=== PATIENT | female | born 1990 | race Caucasian/White ===

== ENCOUNTER 2020-11-02 20:56 | Inpatient (IN) ==
[2020-11-02] MEDS ORDERED: ONDANSETRON 4 MG/2 ML VIAL IV PRN (21:50)
[2020-11-02] MEDS ORDERED: BUTORPHANOL 2 MG/ML VIAL IV PRN (21:50)
[2020-11-02] MEDS: LACTATED RINGERS 1,000 ML IV SCH (22:00)
[2020-11-02 22:13] LABS: Basophils # 0.1 10*3/uL (0.0-0.2); Basophils % 0.4 % (0.0-0.8); Eosinophils # 0.1 10*3/uL (0.0-0.87); Eosinophils % 0.8 % (0.00-10.9); Hematocrit 31.1 VOL% (35.7-47.0); Hemoglobin 10.1 GM/DL (12.0-16.0); Lymphocytes # 2.2 10*3/uL (1.4-4.0); Mean Corpuscular HGB Conc 32.5 GM/DL (32-36); Mean Corpuscular Volume 85.2 FL (87-102); Mean Platelet Volume 11.7 FL (9.6-12.0); Monocytes % 5.8 % (1.7-12.7); NRBC # 0.02 10*3/uL; Platelet Count 272 T/CUMM (130-400); Red Blood Count 3.65 MC/CUMM (3.8-5.5); Red Cell Distribution Width 13.5 % (9.3-17.3); White Blood Count 14.9 T/CUMM (4-12)
[2020-11-02] MEDS ORDERED: AMPICILLIN INJ 2,000 MG in SODIUM CHLORIDE 0.9% 100 ML IV ONE (22:30)
[2020-11-02] MEDS: MEPERIDINE 50 MG/1 ML VIAL IV PRN (22:55)
[2020-11-02 22:56] LABS: Alanine Aminotransferase < 6 U/L (13-56); Albumin 2.1 G/DL (3.4-5.0); Alkaline Phosphatase 124 U/L (45-117); Aspartate Amino Transferase 10 U/L (0-37); Blood Urea Nitrogen 4 MG/DL (7-18); Calcium 8.2 MG/DL (8.5-10.1); Estimated Glom Filtration Rate 147 ML/MIN; Glucose 80 MG/DL (74-106); Osmolality,Calculated 272.5 MOS/KG (273-304)
[2020-11-03 00:02] LABS: Bacteria,Urine Occasional /HPF (Few); Bilirubin,Urine Negative (Negative); Blood, Urine Negative (Negative); Glucose,Urine (UA) Negative (Negative); Ketones,Urine Negative (Negative); Nitrite,Urine Negative (Negative); Protein,Urine Negative; RBC,Urine 2 /HPF (0-4); Squamous Epithelial Cell,Urine Occasional /HPF (0-10); Urine Appearance CLEAR (Clear); Urine Color Yellow (Yellow); Urine Specific Gravity 1.004 (1.001-1.035); Urine Urobilinogen < 2.0 EU/DL (0.2-1.0); WBC,Urine 2 /HPF (0-6)
[2020-11-03 01:32] LABS: Barbiturates Screen,Urine Negative (Negative); Benzodiazepines Screen,Urine Negative (Negative); Cannabinoid Screen,Urine Positive (Negative); Opiate Screen,Urine Negative (Negative); Phencyclidine Screen,Urine Negative (Negative)
[2020-11-03] MEDS: LACTATED RINGERS 1,000 ML IV SCH ×2 (02:05→09:03)
[2020-11-03] MEDS: MEPERIDINE 50 MG/1 ML VIAL IV PRN (02:10)
[2020-11-03] MEDS: AMPICILLIN INJ 1,000 MG in SODIUM CHLORIDE 0.9% 100 ML IV SCH ×3 (02:35→10:12)
[2020-11-03] MEDS ORDERED: CITRIC ACID/SODIUM CITRATE 30 ML UDCUP PO ONE (03:04)
[2020-11-03] MEDS ORDERED: FAMOTIDINE 20 MG/2 ML VIAL IV ONE (03:04)
[2020-11-03] MEDS ORDERED: NALOXONE 0.4 MG/ML VIAL IV PRN (03:04)
[2020-11-03] MEDS ORDERED: hydrOXYzine HCL 25 MG/1 ML VIAL IM PRN (03:04)
[2020-11-03] MEDS ORDERED: ONDANSETRON 4 MG/2 ML VIAL IV ONE (03:04)
[2020-11-03] MEDS ORDERED: ePHEDrine 50 MG/ML VIAL IV PRN (03:04)
[2020-11-03] MEDS ORDERED: PROMETHAZINE 25 MG/1 ML VIAL IM ONE (03:04)
[2020-11-03] MEDS ORDERED: diphenhydrAMINE 50 MG/1 ML VIAL IV PRN ×2 (03:04)
[2020-11-03] MEDS ORDERED: OXYTOCIN/LR 20 UNIT/1,000 ML BAG IV SCH (04:00)
[2020-11-03] MEDS: fentaNYL 2 MCG/ROPIV 0.2% EPID 100 ML EPIDURAL SCH ×2 (04:11→08:44)
[2020-11-03 06:41] LABS: Bacteria,Urine Occasional /HPF (Few); Bilirubin,Urine Negative (Negative); Blood, Urine Negative (Negative); Glucose,Urine (UA) Negative (Negative); Ketones,Urine Negative (Negative); Nitrite,Urine Negative (Negative); Protein,Urine Negative; RBC,Urine <1 /HPF (0-4); Squamous Epithelial Cell,Urine Occasional /HPF (0-10); Urine Appearance CLEAR (Clear); Urine Color Yellow (Yellow); Urine Urobilinogen < 2.0 EU/DL (0.2-1.0); WBC,Urine 1 /HPF (0-6)
[2020-11-03] MEDS ORDERED: OXYTOCIN/LR 20 UNIT/1,000 ML BAG IV ONE ×2 (10:49→12:45)
[2020-11-03] MEDS ORDERED: TRANEXAMIC ACID 1,000 MG/10 ML VIAL ONE (10:49)
[2020-11-03] MEDS ORDERED: miSOPROStoL 200 MCG TABLET ONE (10:49)
[2020-11-03] MEDS ORDERED: CARBOPROST TROMETHAMINE 250 MCG/ML AMP IM ONE (10:50)
[2020-11-03] MEDS ORDERED: METHYLERGONOVINE 0.2 MG/1 ML AMP ONE (10:50)
[2020-11-03] MEDS ORDERED: LIDOCAINE MPF 2% /EPI 20 ML VIAL ONE (12:09)
[2020-11-03] MEDS ORDERED: fentaNYL 100 MCG/2 ML VIAL ONE ×2 (12:28→12:43)
[2020-11-03] MEDS ORDERED: MIDAZOLAM 2 MG/2 ML VIAL ONE (12:30)
[2020-11-03] MEDS ORDERED: DEXAMETHASONE 4 MG/1 ML VIAL ONE (12:31)
[2020-11-03] MEDS ORDERED: PHENYLEPHRINE 1 MG/10 ML SYRINGE IV ONE (12:31)
[2020-11-03] MEDS ORDERED: ROCURONIUM 50 MG/5 ML VIAL IV ONE (12:31)
[2020-11-03] MEDS ORDERED: ONDANSETRON 4 MG/2 ML VIAL ONE (12:31)
[2020-11-03] MEDS ORDERED: LIDOCAINE 2% 5 ML VIAL ONE (12:31)
[2020-11-03] MEDS ORDERED: SUCCINYLCHOLINE 200 MG/10 ML VIAL ONE (12:31)
[2020-11-03] MEDS ORDERED: propofoL 200 MG/20 ML VIAL IV ONE (12:31)
[2020-11-03 12:44] LABS: Cord Arterial Blood HCO3 20.4 MMOL/L
[2020-11-03] MEDS ORDERED: ACETAMINOPHEN 325 MG TABLET PO PRN (12:45)
[2020-11-03] MEDS ORDERED: ONDANSETRON 4 MG/2 ML VIAL IV PRN (12:45)
[2020-11-03] MEDS ORDERED: RHO(D) IMMUNE GLOBULIN 300 MCG SYRINGE IM ONE (12:45)
[2020-11-03 12:47] LABS: Cord Venous Blood HCO3 20.3 MMOL/L; Cord Venous Blood PCO2 39.3 MMHG; Cord Venous Blood PO2 30.1 MMHG
[2020-11-03] MEDS ORDERED: LACTATED RINGERS 1,000 ML IV SCH (13:00)
[2020-11-03] MEDS: KETOROLAC 30 MG/1 ML VIAL IV PRN (17:21)
[2020-11-03] MEDS: ceFAZolin 1,000 MG in SYRINGE 1 EACH IV SCH (20:12)
[2020-11-03] MEDS: DOCUSATE SODIUM 100 MG CAPSULE PO SCH (20:23)
[2020-11-03 20:24] LABS: Basophils % 0.1 % (0.0-0.8); Hematocrit 29.2 VOL% (35.7-47.0); Hemoglobin 9.4 GM/DL (12.0-16.0); Immature Granulocytes % 1.2 %; Immature Granulocytes Absolute 0.27 #; Lymphocytes # 1.1 10*3/uL (1.4-4.0); Lymphocytes % 4.7 % (21.3-54.2); Mean Corpuscular HGB Conc 32.2 GM/DL (32-36); Mean Corpuscular Volume 85.4 FL (87-102); Mean Platelet Volume 11.8 FL (9.6-12.0); Monocytes % 3.9 % (1.7-12.7); Neutrophils % 90.1 % (38.7-73.9); Platelet Count 227 T/CUMM (130-400); Red Blood Count 3.42 MC/CUMM (3.8-5.5); Red Cell Distribution Width 13.5 % (9.3-17.3); White Blood Count 23.4 T/CUMM (4-12)
[2020-11-03 21:41] LABS: Band Neutrophils 3 % (0-10); Lymphocytes 5 % (20-55); Segmented Neutrophils 89 % (50-85); Total Cells Counted 100
[2020-11-03 21:42] LABS: Platelet Estimate Normal; Polychromasia Slight
[2020-11-04] MEDS: ceFAZolin 1,000 MG in SYRINGE 1 EACH IV SCH (04:42)
[2020-11-04] MEDS: KETOROLAC 30 MG/1 ML VIAL IV PRN (06:41)
[2020-11-04 06:47] LABS: Basophils # 0.1 10*3/uL (0.0-0.2); Basophils % 0.3 % (0.0-0.8); Eosinophils % 0.1 % (0.00-10.9); Hematocrit 25.5 VOL% (35.7-47.0); Hemoglobin 8.4 GM/DL (12.0-16.0); Immature Granulocytes Absolute 0.18 #; Lymphocytes # 2.8 10*3/uL (1.4-4.0); Lymphocytes % 15.7 % (21.3-54.2); Mean Corpuscular HGB Conc 32.9 GM/DL (32-36); Mean Corpuscular Volume 85.9 FL (87-102); Mean Platelet Volume 12.7 FL (9.6-12.0); Monocytes % 6.2 % (1.7-12.7); Neutrophils % 76.7 % (38.7-73.9); Platelet Count 200 T/CUMM (130-400); Red Blood Count 2.97 MC/CUMM (3.8-5.5); Red Cell Distribution Width 13.6 % (9.3-17.3)
[2020-11-04] MEDS: MAGNESIUM HYDROXIDE SUSP 30 ML UDCUP PO PRN ×2 (10:30→20:47)
[2020-11-04] MEDS: SIMETHICONE CHEW 80 MG TABLET PO PRN ×2 (10:30→20:47)
[2020-11-04] MEDS: MULTIVITAMIN (PRENATAL) TABLET PO SCH (10:30)
[2020-11-04] MEDS: DOCUSATE SODIUM 100 MG CAPSULE PO SCH ×2 (10:31→20:47)
[2020-11-04] MEDS: IBUPROFEN 800 MG TABLET PO PRN (20:47)
[2020-11-05] MEDS: IBUPROFEN 800 MG TABLET PO PRN (09:14)
[2020-11-05] MEDS: DOCUSATE SODIUM 100 MG CAPSULE PO SCH (09:14)
[2020-11-05] MEDS: MULTIVITAMIN (PRENATAL) TABLET PO SCH (09:14)
[2020-11-05 10:17] VITALS: BP 118/74
== END 2020-11-05 13:15 | disposition home or self-care (01) | DRG 560 ==
LOC: N.LDOUT 20:56 → N.LD 21:03 → N.OB 11-03 16:39
PROVIDERS: ADMIT Obstetrics & Gynecology; ATTEND Obstetrics & Gynecology
PROC: LDCSECT (ICD-10-PCS; 2020-11-03 12:15)